=== PATIENT | female | born 1995 | race American Indian/Alaskan Native ===

== ENCOUNTER 2017-10-06 19:11 | Emergency (ER) | payer SELFPAY ==
[2017-10-06 20:00] VITALS: RESP 18; TEMP 98.5; O2SAT 100
--- NOTE | 2017-10-06 20:19 | ED PDOC ---
HPI: Abdomen Time Seen by Provider: 10/06/17 20:05 Chief Complaint (Nursing): Abdominal Pain Chief Complaint (Provider): Abdominal pain History Per: Patient History/Exam Limitations: no limitations Additional Complaint(s): Pt reports intermittent lower abdominal pain X 3 weeks, associated with nausea, no vomiting, LMP 08/10. Denies fever, vomiting, constipation, diarrhea, dysuria , hematuria, vaginal bleeding. Abnormal Vaginal Bleeding: No Past Medical History Reviewed: Nursing Documentation, Vital Signs Vital Signs: Last Vital Signs Temp 98.5 F 10/06/17 23:30 Pulse 58 L 10/06/17 23:30 Resp 18 10/06/17 23:30 BP 107/71 10/06/17 23:30 Pulse Ox 100 10/06/17 23:30 - Medical History PMH: No Chronic Diseases - Surgical History Surgical History: No Surg Hx - Family History Family History: States: Unknown Family Hx - Social History Alcohol: None - Immunization History Hx Tetanus Toxoid Vaccination: No - Home Medications Home Medications: Ambulatory Orders Medication Instructions Recorded Nitrofurantoin Macrocrystals 100 mg PO BID #14 cap 03/30/17 [Macrobid] Phenazopyridine HCl [Pyridium] 200 mg PO TID #6 tablet 03/30/17 Ibuprofen [Motrin] 600 mg PO Q6H PRN #20 tab 10/06/17 - Allergies Allergies/Adverse Reactions: Allergies Allergy/AdvReac Type Severity Reaction Status Date / Time No Known Allergies Allergy Verified 03/30/17 12:16 Review of Systems Constitutional: Negative for: Fever, Chills Cardiovascular: Negative for: Chest Pain, Palpitations Respiratory: Negative for: Cough, Shortness of Breath Gastrointestinal: Positive for: Nausea, Abdominal Pain. Negative for: Vomiting , Diarrhea Genitourinary Female: Negative for: Dysuria, Hematuria, Vaginal Discharge, Vaginal Bleeding Musculoskeletal: Negative for: Neck Pain, Back Pain Skin: Negative for: Rash, Lesions Neurological: Negative for: Weakness, Numbness, Headache, Dizziness Physical Exam - Reviewed Nursing Documentation Reviewed: Yes Vital Signs Reviewed: Yes - Physical Exam Appears: Positive for: Well, No Acute Distress Skin: Positive for: Normal Color, Warm, Dry Eye Exam: Positive for: Normal appearance, EOMI, PERRL Cardiovascular/Chest: Positive for: Regular Rate, Rhythm Respiratory: Positive for: Normal Breath Sounds. Negative for: Rales, Rhonchi, Wheezing Gastrointestinal/Abdominal: Positive for: Bowel Sounds, Soft, Tenderness ( Minimal suprapubic). Negative for: Distended, Guarding, Rebound Back: Positive for: Normal Inspection Extremity: Positive for: Normal ROM Neurologic/Psych: Positive for: Alert, Oriented - ECG O2 Sat by Pulse Oximetry: 100 Medical Decision Making Medical Decision Makin yo female with lower abdominal pain. - u dip - u preg 2306 US TRANSVAGINAL FINDINGS: Uterus/cervix: Unremarkable measuring 6.1 x 2.4 x 3.9 cm. Normal endometrial stripe thickness measuring 3 mm. No myometrial mass. Right ovary: Unremarkable with multiple small peripheral follicles. No mass. Normal blood flow. Left ovary: Unremarkable with multiple small peripheral follicles. No mass. Normal blood flow. Free fluid: No free fluid. Bladder: Empty bladder which cannot be evaluated with this probe. IMPRESSION: Unremarkable pelvic ultrasound. Scribe Attestation: Documented by Angelita Hurd, acting as a scribe for Julieth Macdonald MD. Provider Scribe Attestation: All medical record entries made by the Scribe were at my direction and personally dictated by me. I have reviewed the chart and agree that the record accurately reflects my personal performance of the history, physical exam, medical decision making, and the department course for this patient. I have also personally directed, reviewed, and agree with the discharge instructions and disposition. Disposition - Clinical Impression Clinical Impression: Pelvic pain - Disposition Referrals: [facility] [Outside] Disposition: Routine/Home Disposition Time: 23:24 Condition: STABLE Prescriptions: Ibuprofen [Motrin] 600 mg PO Q6H PRN #20 tab PRN Reason: Pain, Moderate (4-7) Instructions: Acute Pelvic Pain Forms: [employer] ([place])
--- NOTE | 2017-10-06 23:08 | US ---
EXAM: US Pelvis, Transvaginal CLINICAL HISTORY: 22 years old, female; Pain; Pelvic pain; Additional info: Lower abd pain TECHNIQUE: Real-time transvaginal pelvic ultrasound (complete) with image documentation. Transvaginal imaging was used for better evaluation of the endometrium and adnexa. COMPARISON: No relevant prior studies available. FINDINGS: Uterus/cervix: Unremarkable measuring 6.1 x 2.4 x 3.9 cm. Normal endometrial stripe thickness measuring 3 mm. No myometrial mass. Right ovary: Unremarkable with multiple small peripheral follicles. No mass. Normal blood flow. Left ovary: Unremarkable with multiple small peripheral follicles. No mass. Normal blood flow. Free fluid: No free fluid. Bladder: Empty bladder which cannot be evaluated with this probe. IMPRESSION: Unremarkable pelvic ultrasound.
[2017-10-07 00:54] VITALS: BP 107/71; PULSE 58
== END 2017-10-06 23:30 | disposition home or self-care (01) ==
LOC: H.ER 19:11
DX: R10.2 Pelvic and perineal pain (principal)